=== PATIENT | male | born 1965 | race Caucasian/White ===

== ENCOUNTER → 2024-06-21 10:35 | Outpatient (REF) | payer OTHER, SELFPAY | LOC: HWRAD 10:35 | PROVIDERS: ATTENDING PHYSICIAN Family Medicine | DX: M79.604 Pain in right leg (principal); E78.5 Hyperlipidemia, unspecified; F39 Unspecified mood [affective] disorder; D75.1 Secondary polycythemia | CPT/HCPCS: 73590 ==

== ENCOUNTER → 2025-02-16 10:07 | Outpatient (REF) | payer OTHER, SELFPAY | LOC: EMG 10:07 | PROVIDERS: ATTENDING PHYSICIAN Orthopaedic Surgery Hand Surgery; FAMILY PHYSICIAN Family Medicine | DX: M25.532 Pain in left wrist (principal); M25.531 Pain in right wrist; R20.0 Anesthesia of skin | CPT/HCPCS: 95886; 95911 ==